=== PATIENT | male | born 1965 | race African-American/Black ===

== ENCOUNTER 2016-07-26 15:02 | Inpatient (IN) | payer OTHER ==
[~2016-07-26] VITALS: Ht 185.4 cm; Wt 123.7 kg
[~2016-07-26 15:02] MED LIST: BACTRIM,SEPT1 TABLET PO; CLOTRIM ANTIFUN15 GM TP; KEFLEX500 MG PO; VICODIN 5-3001 EACH PO
[2016-07-26 15:33] LABS: CREATININE 1.6 mg/dL (0.6-1.3); POTASSIUM 3.8 mEq/L (3.7-5.4)
[2016-07-26 15:38] LABS: EOSINOPHIL (%) 0.5 % (0-5); EOSINOPHIL COUNT 0.1 K/uL (0-0.3); HEMATOCRIT 47.2 % (38.0-50.0); IMMATURE GRANULOCYTE (%) 0.5 % (0.0-0.7); IMMATURE GRANULOCYTE COUNT 0.1 K/uL; INSTRUMENT ABS NEUTROPHIL CT 11.5 K/uL; LYMPHOCYTE COUNT 2.3 K/uL (1.0-2.8); MCH 29.1 PG (29.0-34.0); MCHC 33.1 G/DL (30.0-36.0); MCV 88.1 FL (86-99); MEAN PLAT.VOLUME 9.4 uM^3 (9.0-12.4); NEUTROPHIL (%) 76.7 % (45-76); NEUTROPHIL COUNT 11.5 K/uL (1.8-6.4); PLATELET COUNT 375 K/uL (156-360); RBC DIS.WIDTH-CV 15.2 % (11.8-14.6); RBC DIS.WIDTH-SD 48.8 % (39-53); RED BLOOD COUNT 5.36 M/uL (4.00-5.50)
[2016-07-26 15:48] LABS: PROTHROMBIN TIME 10.6 (9.2-11.2); PTT 24.4 (25-32)
[2016-07-26 15:53] LABS: CHLORIDE 106 mEq/L (99-109); POTASSIUM 4.2 mEq/L (3.7-5.4); SODIUM 141 mEq/L (136-147)
[2016-07-26 15:54] LABS: GLUCOSE 129 mg/dL (70-99)
[2016-07-26 15:57] LABS: ANION GAP 12 MEQ/L (2-14)
[2016-07-26 15:58] LABS: GFR ESTIMATE (CALCULATED) 55 mL/min/
[2016-07-26 15:59] LABS: UREA NITROGEN (BUN) 17 mg/dL (9-23)
[2016-07-26 16:03] LABS: TROP-I INTERPRETATION NEGATIVE; TROPONIN-I < 0.01 ng/mL (0.0-0.30)
[2016-07-26 16:09] LABS: SERUM ETHYL ALCOHOL < 10 mg/dL
[2016-07-26 16:59] LABS: HDL CHOLESTEROL 47 MG/DL (Desirable>=40); LDL CHOLESTEROL 123 mg/dL (Desirable<100); NON-HDL CHOLESTEROL 143 mg/dL (Desirable<160); TOTAL CHOLESTEROL 190 mg/dL (Desirable<200); TRIGLYCERIDES 101 MG/DL (Normal: <150)
[2016-07-26] MEDS ORDERED: LISINOPRIL-HCT1 EAC3 PO (17:56)
[2016-07-26] MEDS ORDERED: ALEVE220 MG PO (17:56)
[2016-07-26] MEDS ORDERED: AUGMENTIN875 MG PO (17:58)
[2016-07-26 18:30] LABS: AMPHETAMINE NEGATIVE (500 ng/mL); BARBITURATES NEGATIVE (200 ng/mL); BENZODIAZEPINES NEGATIVE (150 ng/mL); COCAINE NEGATIVE (150 ng/mL); INTERNAL CONTROLS VALID? YES; METHADONE NEGATIVE (200 ng/mL); METHAMPHETAMINE NEGATIVE (500 ng/mL); OPIATES (MORPHINE) NEGATIVE (100 ng/mL); OXYCODONE NEGATIVE (100 ng/mL); PHENCYCLIDINE NEGATIVE (25 ng/mL); PROPOXYPHENE NEGATIVE (300 ng/mL); THC CANNABINOIDS NEGATIVE (50 ng/mL); TRICYCLIC ANTIDEPRESSANTS NEGATIVE (300 ng/mL)
[2016-07-26 18:43] LABS: Estimated Average Glucose 131 mg/dL (70-123); HEMOGLOBIN A1c (GLYCOHEMOGLOB) 6.2 % HGB (Below 5.7)
[2016-07-26 20:52] VITALS: BP 142/92
[2016-07-26 22:15] LABS: TROP-I INTERPRETATION NEGATIVE; TROPONIN-I < 0.01 ng/mL (0.0-0.30)
[2016-07-26 22:44] LABS: PROLACTIN 4.1 NG/ML
[2016-07-27] VITALS (7 sets, daily range): BP systolic 128–152; BP diastolic 67–98
[2016-07-27 07:40] LABS: HEMATOCRIT 40.5 % (38.0-50.0); MCH 28.6 PG (29.0-34.0); MCHC 32.6 G/DL (30.0-36.0); MCV 87.9 FL (86-99); MEAN PLAT.VOLUME 9.6 uM^3 (9.0-12.4); PLATELET COUNT 343 K/uL (156-360); RBC DIS.WIDTH-SD 48.5 % (39-53); RED BLOOD COUNT 4.61 M/uL (4.00-5.50)
[2016-07-27 07:48] LABS: ALKALINE PHOSPHATASE 43 IU/L (3-129); ANION GAP 9 MEQ/L (2-14); CHLORIDE 105 MEQ/L (99-109); GFR ESTIMATE (CALCULATED) > 59 mL/min/; GLUCOSE 122 mg/dL (70-99); POTASSIUM 3.8 MEQ/L (3.7-5.4); SAMPLE HEMOLYSIS CHECK 0; SAMPLE ICTERIC CHECK 0; SAMPLE LIPEMIA CHECK 0; SODIUM 140 MEQ/L (136-147); TOTAL BILIRUBIN 1.5 MG/DL (0.0-1.0); UREA NITROGEN (BUN) 16 mg/dL (9-23)
[2016-07-27 07:57] LABS: WHITE BLOOD COUNT 10.3 K/uL (4.1-10.2)
[2016-07-27 08:23] LABS: TROP-I INTERPRETATION NEGATIVE; TROPONIN-I < 0.01 ng/mL (0.0-0.30)
[2016-07-28 07:35] VITALS: BP 141/92
[2016-07-28 08:06] LABS: POINT-OF-CARE METER ID UU14188625
[2016-07-28 11:31] LABS: HEMATOCRIT 44.9 % (38.0-50.0); MCH 28.8 PG (29.0-34.0); MCHC 32.3 G/DL (30.0-36.0); MCV 89.1 FL (86-99); MEAN PLAT.VOLUME 9.7 uM^3 (9.0-12.4); PLATELET COUNT 378 K/uL (156-360); RBC DIS.WIDTH-CV 15.1 % (11.8-14.6); RBC DIS.WIDTH-SD 49.5 % (39-53); RED BLOOD COUNT 5.04 M/uL (4.00-5.50)
[2016-07-28 11:32] LABS: WHITE BLOOD COUNT 6.6 K/uL (4.1-10.2)
[2016-07-28 11:34] LABS: ANION GAP 9 MEQ/L (2-14); CHLORIDE 104 MEQ/L (99-109); GFR ESTIMATE (CALCULATED) > 59 mL/min/; GLUCOSE 111 mg/dL (70-99); POTASSIUM 4.2 MEQ/L (3.7-5.4); SAMPLE HEMOLYSIS CHECK 0; SAMPLE ICTERIC CHECK 0; SAMPLE LIPEMIA CHECK 0; SODIUM 139 MEQ/L (136-147); UREA NITROGEN (BUN) 13 mg/dL (9-23)
[2016-07-28 11:52] VITALS: BP 136/90
[2016-07-28 11:56] VITALS: BP 108/65
[2016-07-28 15:04] VITALS: BP 154/91
[2016-07-28 17:22] LABS: POINT-OF-CARE METER ID UU14174225
[2016-07-28 20:11] VITALS: BP 168/83
[2016-07-28 21:52] LABS: POINT-OF-CARE METER ID UU14174225
[2016-07-29 00:18] VITALS: BP 150/86
[2016-07-29 04:13] VITALS: BP 125/74
[2016-07-29 06:29] LABS: ANION GAP 8 MEQ/L (2-14); CHLORIDE 107 MEQ/L (99-109); GFR ESTIMATE (CALCULATED) > 59 mL/min/; GLUCOSE 99 mg/dL (70-99); POTASSIUM 4.1 MEQ/L (3.7-5.4); SAMPLE HEMOLYSIS CHECK 0; SAMPLE ICTERIC CHECK 0; SAMPLE LIPEMIA CHECK 0; SODIUM 139 MEQ/L (136-147); UREA NITROGEN (BUN) 13 mg/dL (9-23)
[2016-07-29 08:22] VITALS: BP 128/75
[2016-07-29] MEDS ORDERED: BACTRIM,SEPT1 TABLE1 PO (09:51)
[2016-07-29] MEDS ORDERED: ATORVASTATIN CA40 MG PO (09:51)
[2016-07-29] MEDS ORDERED: ASPIR-LOW81 MG PO (09:51)
[2016-07-29] MEDS ORDERED: AUGMENTIN875 MG PO (09:51)
[2016-07-29] MEDS ORDERED: AMLODIPINE BESYL5 MG PO (09:51)
[2016-07-29 13:59] LABS: ADRENOCORTICOTROPIC HORMONE+ 7 pg/mL (6-50)
[2016-08-01 18:35] LABS: Insulin Like Growth Factor-1 108 ng/mL (50-317); Z-SCORE (MALE) -0.6 SD (-2.0 - +2.0)
== END 2016-07-29 12:30 | disposition home or self-care (01) | DRG 69 ==
LOC: EME → EDBD 15:02 → EME 15:02 → 5SOUTH 19:46 → EDOF 19:46 → 5SOUTH 20:52
PROVIDERS: Emergency Medicine; Hospitalist; Internal Medicine
DX: G45.9 Transient cerebral ischemic attack, unspecified (principal); N17.9 Acute kidney failure, unspecified; E66.9 Obesity, unspecified; R47.1 Dysarthria and anarthria; R27.0 Ataxia, unspecified; Z68.35 Body mass index [BMI] 35.0-35.9, adult; K11.21 Acute sialoadenitis; I10 Essential (primary) hypertension; F17.200 Nicotine dependence, unspecified, uncomplicated; E11.9 Type 2 diabetes mellitus without complications; R51 Headache; R55 Syncope and collapse; W18.30XA Fall on same level, unspecified, initial encounter; Y93.9 Activity, unspecified; Y92.9 Unspecified place or not applicable
CPT/HCPCS: 70450; 70496; 70498; 70553; 80047; 80048; 80053; 80061; 80202; 82024 90; 82948; 83036; 83605; 84146; 84305 90; 84443; 84484; 85025; 85027; 85610; 85730; 93005; 93306; 95819; 99281; 99285; G0480; J1644; J2310; J3370; J7030